=== PATIENT | female | born 1955 | race Caucasian/White ===

== ENCOUNTER → 2017-06-21 | Outpatient (CLI) | payer MEDICARE, OTHER ==
--- NOTE | 2017-06-21 11:18 | RADIOLOGY REPORT (SQ) ---
EXAM DESCRIPTION: CT RT UPPER EXTREMITY WITHOUT COMPLETED DATE/TIME: 06/21/2017 9:50 am REASON FOR STUDY: OTHER FX OF LOWER END OF R RADIUS, INITIAL ENCOUNTER FOR CLOSED FX S52.591A OTH F RACTURES OF LOWER END OF RIGHT RADIUS, INIT FO COMPARISON: None. TECHNIQUE: Axial imaging performed through the right wrist with reformatted coronal and sagittal keysha ging windowed for bone and soft tissues. Images saved to PACS. 3D IMAGING: Were 3D images as MIP, SSD, or volume rendering performed at the work station? Yes. All CT scanners at this facility use dose modulation, iterative reconstruction, and/or weight based d osing when appropriate to reduce radiation dose to as low as reasonably achievable (ALARA). [facility]: Dose Right [facility]: CareDose [facility]: Dose Right [facility]: Teradose 4D [facility]: [employer] LIMITATIONS: None. RADIATION DOSE: CT Rad equipment meets quality standard of care and radiation dose reduction techniq ues were employed. CTDIvol: 4.5 mGy. DLP: 85 mGy-cm. mGy. FINDINGS: SOFT TISSUES: No drainable extra-articular collections. No gross mass or foreign body det ected. Joint effusion. BONES: Impacted intra-articular distal radial fracture with fractures extending into the radiocarpal and radioulnar joints. No significant angulation. There is associated foreshortening of the radius. Minimally displaced ulnar styloid fracture. Osteopenia. No overt carpal fracture or malalignment. No callus evident. MINERALIZATION: Osteopenic. OTHER: No other significant finding. IMPRESSION: Intraarticular impacted distal radius fracture. Extension into the radiocarpal and radi oulnar joints with minimally displaced ulnar styloid fracture also noted. No carpal fracture or lb lignment. TECHNICAL DOCUMENTATION: JOB ID: [id number] Quality ID # [id number]: Final reports with documentation of one or more dose reduction techniques (e.g., Au tomated exposure control, adjustment of the mA and/or kV according to patient size, use of iterative reconstruction technique) 2010 [employer]- All Rights Reserved Reading location - IP/workstation name: [email or web address]
== END ==
LOC: RAD 09:31
PROVIDERS: ATTEND Physician Assistant
DX: S52.571A Other intraarticular fracture of lower end of right radius, initial encounter for closed fracture (principal); X58.XXXA Exposure to other specified factors, initial encounter

== ENCOUNTER → 2017-07-16 | Outpatient (CLI) | payer MEDICARE, OTHER ==
--- NOTE | 2017-07-16 10:28 | WOMENS IMAGING REPORT ---
EXAM DESCRIPTION: BONE DENSITY HIP/SPINE COMPLETED DATE/TIME: 07/16/2017 9:52 am REASON FOR STUDY: OTHER SPECIFIED DISORDERS OF BONE; M85.89 M81.0 AGE-RELATED OSTEOPOROSIS W/O CURR ENT PATHOLOGICAL FRAC M85.89 OTH DISRD OF BONE DENSITY AND STRUCTURE, MULTIPLE SIT COMPARISON: None. TECHNIQUE: Dual-Energy X-ray Absorptiometry (DEXA) of the AP Spine and Hip. LIMITATIONS: None. FINDINGS: LUMBAR SPINE: The bone mineral density (BMD) measured from L1-L4 in the AP projection correlates with a T-score of -1.5, which is osteopenic as defined by the World Health Organization. HIP: The bone mineral density (BMD) measured in the left femoral neck at the hip correlates with a T-score of -2.0, which is osteopenic as defined by the World Health Organization. IMPRESSION: 1. LUMBAR SPINE: Osteopenic 2. HIP: Osteopenic COMMENT: The World Health Organization defines low BMD as follows: T-score: Normal: Greater than -1.0 Osteopenia: Between -1.0 and -2.5 Osteoporosis: Less than -2.5 without fractures Established osteoporosis: Less than -2.5 with fractures In general, you may wish to consider: Diagnosis Treatment Follow-up DEXA Normal BMD Prevention 2-3 years Osteopenia Prevention/Therapy 1-2 years Osteoporosis Therapy Yearly TECHNICAL DOCUMENTATION: JOB ID: [id number] [employer]- All Rights Reserved Reading location - IP/workstation name: [email or web address]
== END ==
LOC: WI 09:16
PROVIDERS: ATTEND Physician Assistant
DX: M85.89 Other specified disorders of bone density and structure, multiple sites (principal)
CPT/HCPCS: 77080

== ENCOUNTER 2018-05-08 16:24 | Emergency (ER) | payer MEDICARE, OTHER ==
--- NOTE | 2018-05-08 18:18 | ER Document Report ---
ED Medical Screen (RME) - General Chief Complaint: Laceration Stated Complaint: FACIAL INJURY Time Seen by Provider: 05/08/18 18:18 Primary Care Provider: TRES BALDERRAMA PA [Primary Care Provider] - Follow up as needed Mode of Arrival: Ambulatory Information source: Patient TRAVEL OUTSIDE OF THE [place] IN LAST 30 DAYS: No - HPI Patient complains to provider of: cut lip Onset: Just prior to arrival - pt cut lip after being hit in the face with car door. No LOC, neck pain. Tet- UTD - Related Data Allergies/Adverse Reactions: Penicillins Allergy (Severe, Verified 06/16/13 20:57) Anaphylaxis peanut [Peanut] Adverse Reaction (Severe, Verified 06/16/13 20:57) GI upset peanut oil [Peanut Oil] Adverse Reaction (Severe, Verified 06/16/13 20:57) GI upset Past Medical History - Social History Frequency of alcohol use: None Drug Abuse: None - Past Medical History Cardiac Medical History: Reports: Hx Hypertension Pulmonary Medical History: Denies: Hx Tuberculosis Renal/ Medical History: Denies: Hx Peritoneal Dialysis GI Medical History: Reports: Hx Gastroesophageal Reflux Disease Musculoskeltal Medical History: Reports Hx Arthritis Psychiatric Medical History: Reports: Hx Anxiety Past Surgical History: Reports: Hx Section - x2, Hx Cholecystectomy, Hx Orthopedic Surgery - right knee, Hx Tonsillectomy - Immunizations Hx Diphtheria, Pertussis, Tetanus Vaccination: Yes Physical Exam - Vital signs Vitals: Temp Pulse Resp BP Pulse Ox 98.3 F 80 16 130/66 H 100 05/08/18 16:42 05/08/18 16:42 05/08/18 16:42 05/08/18 16:42 05/08/18 16:42 Course - Vital Signs Vital signs: Temp Pulse Resp BP Pulse Ox 98.3 F 80 16 130/66 H 100 05/08/18 16:42 05/08/18 16:42 05/08/18 16:42 05/08/18 16:42 05/08/18 16:42 Doctor's Discharge - Discharge Referrals: TRES BALDERRAMA PA [Primary Care Provider] - Follow up as needed
--- NOTE | 2018-05-08 20:51 | ER Document Report ---
HPI - HPI Patient complains to provider of: Lip laceration Time Seen by Provider: 05/08/18 18:18 Pain Level: 3 Context: Patient is a 62-year-old female presents to the emergency department for a laceration she sustained to her upper lip. Patient states around 7:00 this morning she was getting into a friend's car. States she was unfamiliar with the car and she opened the door and accidentally hit her lip on the corner of the door. Patient's denying any loss of consciousness, head, neck, back pain. Patient states she got into the car applied pressure and inevitably drove back to [place] and presents to the emergency department where she lives. Patient states she is on blood thinners and it has been intermittently bleeding throughout the day but has since stopped bleeding. Patient states she has been applying ice and otherwise has no complaints. - REPRODUCTIVE Reproductive: DENIES: : - DERM Skin Color: Normal Past Medical History - General Information source: Patient - Social History Smoking Status: Never Smoker Frequency of alcohol use: None Drug Abuse: None Family History: Reviewed & Not Pertinent Patient has suicidal ideation: No Patient has homicidal ideation: No - Past Medical History Cardiac Medical History: Reports: Hx Hypertension Pulmonary Medical History: Denies: Hx Tuberculosis Renal/ Medical History: Denies: Hx Peritoneal Dialysis GI Medical History: Reports: Hx Gastroesophageal Reflux Disease Musculoskeletal Medical History: Reports Hx Arthritis Psychiatric Medical History: Reports: Hx Anxiety Past Surgical History: Reports: Hx Section - x2, Hx Cholecystectomy, Hx Orthopedic Surgery - right knee, Hx Tonsillectomy - Immunizations Hx Diphtheria, Pertussis, Tetanus Vaccination: Yes Vertical Provider Document - CONSTITUTIONAL Agree With Documented VS: Yes Notes: GENERAL: Alert, interacts well. No acute distress. HEAD: Normocephalic. EYES: Pupils equal, round, and reactive to light. Extraocular movements intact. ENT: Oral mucosa moist, tongue midline. Nares patent, no nasal septal hematoma, TM's intact, no hemotympanum noted bilaterally NECK: Full range of motion. Supple. Trachea midline. LUNGS: Clear to auscultation bilaterally, no wheezes, rales, or rhonchi. No respiratory distress. HEART: Regular rate and rhythm. No murmur ABDOMEN: Soft, non-tender. Non-distended. Bowel sounds present in all 4 quadrants. EXTREMITIES: Moves all 4 extremities spontaneously. No edema, normal radial and dorsalis pedis pulses bilaterally. No cyanosis. BACK: no cervical, thoracic, lumbar midline tenderness. No saddle anesthesia, normal distal neurovascular exam. NEUROLOGICAL: Alert and oriented x3. Normal speech. [cranial nerves II through XII grossly intact]. PSYCH: Normal affect, normal mood. SKIN: Warm, dry, normal turgor. 0.5 centimeter well scabbed linear laceration through the middle of the patient's upper lip. Does minutely go through the vermilion border. - INFECTION CONTROL TRAVEL OUTSIDE OF THE [place] IN LAST 30 DAYS: No Course - Re-evaluation Re-evalutation: Discussed at length with patient risks versus benefits versus infection of repair of this laceration since it has been well over 12 hours. Discussed cosmetic reasons for repair due to it going through vermilion border. Upon my manipulation the wound is well scabbed with no active bleeding. The wound is very small and approximates with the scab in place. Again discussed risks versus benefits of laceration repair with the patient at bedside. Patient states since it is stopped bleeding and it is been so long she wishes to be discharged home. States she does not want to go through suture repair and will follow up with her primary care provider. Patient stable for discharge. States her tetanus immunization was within the last 2 years. - Vital Signs Vital signs: Temp Pulse Resp BP Pulse Ox 98.3 F 80 16 130/66 H 100 05/08/18 16:42 05/08/18 16:42 05/08/18 16:42 05/08/18 16:42 05/08/18 16:42 Discharge - Discharge Clinical Impression: Laceration Condition: Stable Disposition: HOME, SELF-CARE Instructions: Antibiotic Ointment Protection ([facility]), Laceration Care ([facility]), Soap Cleansing ([facility]) Additional Instructions: As we discussed you have been seen and treated in the emerge him in for a laceration to your upper lip. At this point time there are no need for sutures. Please make sure you keep the wound clean and dry and follow-up with your primary care provider in the next 24-48 hours. Should any signs of infection arise to include swelling, redness, discharge from the site please immediately return to the emergency room. Please also return to the emergency room should you have any other concerning symptoms. Referrals: TRES BALDERRAMA PA [Primary Care Provider] - Follow up as needed
[2018-05-08 21:01] VITALS: BP 131/58
== END 2018-05-08 21:05 | disposition home or self-care (01) ==
LOC: ER 16:24
DX: S01.511A Laceration without foreign body of lip, initial encounter (principal); X58.XXXA Exposure to other specified factors, initial encounter; I10 Essential (primary) hypertension
CPT/HCPCS: 99282